=== PATIENT | female | born 2000 | race African-American/Black ===

== ENCOUNTER 2021-01-17 17:41 | Emergency (ER) | payer SELFPAY ==
[~2021-01-17] VITALS: Ht 167.6 cm; Wt 60.0 kg
[2021-01-17] MEDS ORDERED: LORAZEPAM 2MG/ML CPJ IV ONE (18:30)
[2021-01-17] MEDS ORDERED: SODIUM CHLORIDE 0.9% 1,000 ML IV ONE (18:30)
[2021-01-17 18:39] LABS: BASOPHILS % 0.4 % (0.0-2.0); EOSINOPHILS % 0.7 % (0.0-5.0); HEMATOCRIT. 37.4 % (36.0-48.0); HEMOGLOBIN. 11.9 g/dL (12.0-16.0); LYMPHOCYTES % 20.7 % (20.0-50.0); MEAN CORPUSCULAR HEMOGLOBIN 27.4 pg (28.0-32.0); MEAN CORPUSCULAR VOLUME 86.4 fL (81.0-99.0); MEAN PLATELET VOLUME 8.4 fl (7.4-10.4); MONOCYTES % 6.3 % (2.0-8.0); NEUTROPHILS % 71.9 % (40.0-76.0); PLATELET 301 x1000/uL (130-400); RED BLOOD CELL COUNT 4.33 mill/uL (4.2-5.4); RED CELL DISTRIBUTION WIDTH 13.2 % (11.6-14.6)
[2021-01-17 18:45] LABS: CHLORIDE 106 mEq/L (98-107)
[2021-01-17 18:52] LABS: HCG SCREEN NEGATIVE
[2021-01-17 23:36] VITALS: BP 120/79
== END 2021-01-17 23:37 | disposition home or self-care (01) ==
LOC: ER 17:41
DX: G40.909 Epilepsy, unspecified, not intractable, without status epilepticus (principal)
CPT/HCPCS: 36415; 80053; 84703; 85025; 93005; 96374; 99284; J2060; J7030; Z7610

== ENCOUNTER 2021-03-31 10:19 | Emergency (ER) | payer MEDICAID ==
[~2021-03-31] VITALS: Ht 157.5 cm; Wt 55.0 kg
[2021-03-31 10:52] LABS: BASOPHILS % 0.5 % (0.0-2.0); EOSINOPHILS % 0.8 % (0.0-5.0); HEMATOCRIT. 38.2 % (36.0-48.0); HEMOGLOBIN. 12.5 g/dL (12.0-16.0); LYMPHOCYTES % 12.1 % (20.0-50.0); MEAN CORPUSCULAR HEMOGLOBIN 28.1 pg (28.0-32.0); MEAN CORPUSCULAR VOLUME 86.1 fL (81.0-99.0); MONOCYTES % 3.6 % (2.0-8.0); PLATELET 296 x1000/uL (130-400); RED BLOOD CELL COUNT 4.44 mill/uL (4.2-5.4); RED CELL DISTRIBUTION WIDTH 12.8 % (11.6-14.6)
[2021-03-31 10:56] LABS: CHLORIDE 106 mEq/L (98-107)
[2021-03-31 11:00] LABS: ETHANOL BLOOD < 10 mg/dL
[2021-03-31 11:55] LABS: CLARITY URINE CLEAR (CLEAR); COLOR URINE YELLOW (YELLOW); KETONES URINE NEGATIVE (NEGATIVE); LEUKOCYTE ESTERASE URINE NEGATIVE (NEGATIVE); NITRITE URINE NEGATIVE (NEGATIVE); OCCULT BLOOD URINE NEGATIVE (NEGATIVE); PH URINE 6.5 (4.5-8.0); PROTEIN URINE TRACE (NEGATIVE); SPECIFIC GRAVITY URINE 1.014 (1.005-1.030); UROBILINOGEN URINE 0.2 E.U./dL (0.2-1.0)
[2021-03-31 12:27] LABS: *AMPHETAMINES SCREEN URINE NEGATIVE (NEGATIVE); *BARBITURATES SCREEN URINE NEGATIVE (NEGATIVE); *BENZODIAZEPINES SCREEN URINE NEGATIVE (NEGATIVE); *COCAINE SCREEN URINE NEGATIVE (NEGATIVE)
[2021-03-31 12:28] LABS: CANNABINOID URINE SCREEN NEGATIVE (NEGATIVE); METHADONE URINE SCREEN NEGATIVE (NEGATIVE); OPIATES URINE SCREEN NEGATIVE (NEGATIVE); PHENCYCLIDINE URINE SCREEN NEGATIVE (NEGATIVE)
[2021-03-31 15:00] VITALS: BP 120/70
== END 2021-03-31 15:31 | disposition home or self-care (01) ==
LOC: ER 10:19
DX: G40.909 Epilepsy, unspecified, not intractable, without status epilepticus (principal); I49.9 Cardiac arrhythmia, unspecified
CPT/HCPCS: 36415; 71045; 80053; 80305; 80320; 81003; 81025; 82542; 82962; 85025; 93005; 99285; G0480

== ENCOUNTER 2021-05-06 12:47 | Emergency (ER) | payer MEDICAID ==
[~2021-05-06] VITALS: Ht 165.1 cm; Wt 65.0 kg
[2021-05-06 13:23] LABS: BASOPHILS % 0.7 % (0.0-2.0); EOSINOPHILS % 0.2 % (0.0-5.0); HEMATOCRIT. 36.7 % (36.0-48.0); HEMOGLOBIN. 12.2 g/dL (12.0-16.0); LYMPHOCYTES % 9.4 % (20.0-50.0); MEAN CORPUSCULAR HEMOGLOBIN 28.3 pg (28.0-32.0); MEAN CORPUSCULAR VOLUME 84.9 fL (81.0-99.0); MEAN PLATELET VOLUME 8.1 fl (7.4-10.4); NEUTROPHILS % 85.7 % (40.0-76.0); PLATELET 269 x1000/uL (130-400); RED BLOOD CELL COUNT 4.32 mill/uL (4.2-5.4); RED CELL DISTRIBUTION WIDTH 13.2 % (11.6-14.6)
[2021-05-06 13:31] LABS: CHLORIDE 107 mEq/L (98-107)
[2021-05-06 13:38] LABS: ETHANOL BLOOD < 10 mg/dL
[2021-05-06 13:56] LABS: CLARITY URINE CLEAR (CLEAR); COLOR URINE YELLOW (YELLOW); KETONES URINE NEGATIVE (NEGATIVE); LEUKOCYTE ESTERASE URINE NEGATIVE (NEGATIVE); NITRITE URINE NEGATIVE (NEGATIVE); OCCULT BLOOD URINE TRACE (NEGATIVE); PROTEIN URINE TRACE (NEGATIVE); SPECIFIC GRAVITY URINE 1.014 (1.005-1.030); UROBILINOGEN URINE 0.2 E.U./dL (0.2-1.0)
[2021-05-06 14:15] LABS: *AMPHETAMINES SCREEN URINE NEGATIVE (NEGATIVE); *BARBITURATES SCREEN URINE NEGATIVE (NEGATIVE); *BENZODIAZEPINES SCREEN URINE NEGATIVE (NEGATIVE); *COCAINE SCREEN URINE NEGATIVE (NEGATIVE); CANNABINOID URINE SCREEN NEGATIVE (NEGATIVE); METHADONE URINE SCREEN NEGATIVE (NEGATIVE); OPIATES URINE SCREEN NEGATIVE (NEGATIVE); PHENCYCLIDINE URINE SCREEN NEGATIVE (NEGATIVE)
[2021-05-06 16:14] VITALS: BP 122/79
== END 2021-05-06 16:25 | disposition home or self-care (01) ==
LOC: ER 12:50
DX: G40.909 Epilepsy, unspecified, not intractable, without status epilepticus (principal); R00.0 Tachycardia, unspecified; R94.31 Abnormal electrocardiogram [ECG] [EKG]
CPT/HCPCS: 36415; 80053; 80305; 80320; 81003; 85025; 93005; 99284; G0480

== ENCOUNTER 2021-11-09 00:40 | Emergency (ER) | payer MEDICAID ==
[~2021-11-09] VITALS: Ht 167.6 cm; Wt 59.0 kg
[2021-11-09 03:51] LABS: HEMATOCRIT 35.6 % (36.0-48.0); HEMOGLOBIN 11.1 g/dL (12.0-16.0); MEAN CORPUSCULAR HEMOGLOBIN 27.4 pg (28.0-32.0); MEAN CORPUSCULAR VOLUME 88.2 fL (81.0-99.0); PLATELET 364 x1000/uL (130-400); RED BLOOD CELL COUNT 4.04 mill/uL (4.2-5.4); RED CELL DISTRIBUTION WIDTH 12.9 % (11.6-14.6)
[2021-11-09 04:04] LABS: CHLORIDE 109 mEq/L (98-107)
[2021-11-09] MEDS ORDERED: LEVETIRACETAM 500MG TABLET PO ONE (05:45)
[2021-11-09 06:36] VITALS: BP 104/60
== END 2021-11-09 07:00 | disposition home or self-care (01) ==
LOC: ER 00:40
DX: R56.9 Unspecified convulsions (principal)
CPT/HCPCS: 36415; 80053; 82962; 85027; 93005; 99285